=== PATIENT | female | born 1975 | race Hispanic/Latino ===

== ENCOUNTER 2023-05-03 09:57 | Outpatient (CLI) | payer OTHER, SELFPAY ==
--- NOTE | ~2023-05-03 | MR_ITS ---
MR breast BI wo/w con 05/05/2023 11:00 CDT INDICATION: Follow-up right breast asymmetry COMPARISON: Outside ultrasound and mammogram dated 03/23/2023 and 02/09/2023 FINDINGS: There are no abnormalities on the precontrast sequences. There is marked background parench ymal enhancement. No enhancing lesions following contrast administration. No areas of enhancement m eeting threshold criteria on CAD analysis. No evidence of signal abnormalities in the axillary or in ternal mammary node distributions. LEFT BREAST: No signal abnormalities on precontrast sequences. There is marked background parenchyma l enhancement. No enhancing lesions following contrast administration. No areas of enhancement mari ting threshold criteria on CAD analysis. No evidence of signal abnormalities in the axillary or int ernal mammary node distributions.] IMPRESSION: 1: Study is extremely limited due to breast density and marked background enhancement. No suspicious masses or lymphadenopathy are identified. Short-term follow-up diagnostic mammogram and ultrasound r ecommended in 6 months. BI-RADS CATEGORY 3-PROBABLY BENIGN FINDING RECOMMENDATION: Six-month follow-up diagnostic right mammogram and ultrasound recommended. Reviewed, dictated and finalized at location A. IMPRESSION: 1: Study is extremely limited due to breast density and marked background enhan cement. No suspicious masses or lymphadenopathy are identified. Short-term fol low-up diagnostic mammogram and ultrasound recommended in 6 months. BI-RADS CATEGORY 3-PROBABLY BENIGN FINDING RECOMMENDATION: Six-month follow-up diagnostic right mammogram and ultrasound r ecommended.
== END 2023-05-03 09:58 | disposition home or self-care (01) ==
PROVIDERS: PCP Physician Assistant; Visit Provider Physician Assistant
DX: R92.8 Other abnormal and inconclusive findings on diagnostic imaging of breast (principal)
CPT/HCPCS: 77049; A9577; C8908